=== PATIENT | female | born 1980 | race Two or more races ===

== ENCOUNTER 2017-07-19 20:56 | Emergency (ER) | payer BC, OTHER ==
[~2017-07-19] VITALS: Ht 165.1 cm; Wt 147.4 kg
--- NOTE | 2017-07-19 21:13 | NUR ---
DR. SALINAS AT BEDSIDE FOR MSE.
[2017-07-19 21:40] LABS: RED BLOOD CELL COUNT(AUTO) 4.77 MIL/UL (4.2-5.4)
[2017-07-19 21:42] LABS: CREATININE 0.8 mg/dL (0.6-1.3); POTASSIUM 4.3 mmol/L (3.5-5.1)
[2017-07-19 21:43] LABS: BASOPHILS # (AUTO) 0.1 K/uL (0.0-8.0); BASOPHILS % (AUTO) 1.2 % (0.0-2.0); EOSINOPHILS # (AUTO) 0.2 K/uL (0.0-0.7); EOSINOPHILS % (AUTO) 1.8 % (0.0-7.0); HEMATOCRIT 41.7 % (37-47); HEMOGLOBIN 13.9 G/DL (12.0-16.0); LYMPHOCYTES # (AUTO) 2.4 K/UL (0.8-4.8); LYMPHOCYTES % (AUTO) 22.7 % (20.5-51.5); MEAN CORPUSCULAR HEMOGLOBIN 29.2 UUG (27.0-31.0); MEAN CORPUSCULAR HGB CONC 33 g/dL (32.0-37.0); MEAN CORPUSCULAR VOLUME 87.3 FL (81.0-99.0); MONOCYTES # (AUTO) 0.7 K/UL (0.1-1.30); MONOCYTES % (AUTO) 6.6 % (0.0-11.0); NEUTROPHILS # (AUTO) 7.1 K/UL (1.8-8.9); NEUTROPHILS % (AUTO) 67.7 % (38.5-71.5); PLATELET COUNT (AUTO) 345 K/UL (150-450); WHITE BLOOD COUNT (AUTO) 10.5 K/UL (4.0-11.2)
[2017-07-19] MEDS ORDERED: KETOROLAC TROMETHAMINE 30 MG INJ IVP ONE (22:00)
[2017-07-19] MEDS ORDERED: KETOROLAC TROMETHAMINE 30 MG INJ ONE (22:38)
[2017-07-20] MEDS ORDERED: PANTOPRAZOLE SODIUM 40 MG TABLET.DR PO ONE ×2 (01:45→01:58)
--- NOTE | 2017-07-20 01:51 | NUR ---
Patient discharged to home in stable conditon. Written and verbal after care instructions given. Patient verbalizes understanding of instructions. PATIENT LEFT WITH STABLE GAIT.
[2017-07-20 01:52] VITALS: BP 133/76
== END 2017-07-20 01:52 | disposition home or self-care (01) ==
LOC: ER 20:59
DX: R07.9 Chest pain, unspecified (principal); I45.6 Pre-excitation syndrome; M25.512 Pain in left shoulder
CPT/HCPCS: 36415 ×2; 71010; 80048; 83735; 84484 ×2; 84703; 85025; 85379; 85730; 93005 ×2; 96374; 99285; A4663; J1885; 70030-TC

== ENCOUNTER 2020-09-06 03:22 | Emergency (ER) | payer BC, OTHER ==
[~2020-09-06] VITALS: Ht 165.1 cm; Wt 164.2 kg
--- NOTE | 2020-09-06 03:54 | NUR ---
EKG DONE, MONITOR SHOWS SINUS TACH AT 103,PT POSITIONED FOR COMFORT.
[2020-09-06] MEDS ORDERED: DICYCLOMINE HCL LIQ 10 MG/5 ML UDC PO ONE (04:00)
[2020-09-06] MEDS ORDERED: LIDOCAINE VISCUS 2% 15 ML UDC MM ONE (04:00)
[2020-09-06] MEDS ORDERED: MAG HYDROX/AL HYDROX/SIMETH 30 ML LIQUID UDC PO ONE (04:00)
[2020-09-06] MEDS ORDERED: MAGNESIUM HYDROXIDE 30 ML LIQUID UDC ONE (04:10)
[2020-09-06] MEDS ORDERED: LIDOCAINE VISCUS 2% 15 ML UDC ONE (04:10)
[2020-09-06] MEDS ORDERED: DICYCLOMINE HCL LIQ 10 MG/5 ML UDC ONE (04:11)
[2020-09-06] MEDS ORDERED: LORAZEPAM 2 MG/1 ML VIAL IV ONE (04:15)
[2020-09-06] MEDS ORDERED: IV NORMAL SALINE 1000 ML BAG IV ONE (04:15)
--- NOTE | 2020-09-06 04:34 | NUR ---
ALL MEDS ADMINISTERED , 1 L0.9NS BOLUS INFUSING, LABS SENT, PT POSITIONED FOR COMFORT.
[2020-09-06 04:36] LABS: BASOPHILS # (AUTO) 0.1 K/uL (0.0-8.0); BASOPHILS % (AUTO) 1.2 % (0.0-2.0); EOSINOPHILS # (AUTO) 0.2 K/uL (0.0-0.7); EOSINOPHILS % (AUTO) 1.7 % (0.0-7.0); HEMATOCRIT 41.6 % (31.2-41.9); LYMPHOCYTES # (AUTO) 2.4 K/uL (20.0-40.0); LYMPHOCYTES % (AUTO) 20.8 % (20.5-51.5); MEAN CORPUSCULAR HEMOGLOBIN 30.6 uug (24.7-32.8); MEAN CORPUSCULAR HGB CONC 34 g/dL (32.3-35.6); MONOCYTES # (AUTO) 0.9 K/uL (2.0-10.0); MONOCYTES % (AUTO) 7.6 % (0.0-11.0); NEUTROPHILS # (AUTO) 7.9 K/uL (1.8-8.9); NEUTROPHILS % (AUTO) 68.7 % (38.5-71.5); PLATELET COUNT (AUTO) 338 K/uL (179-408); RED BLOOD CELL COUNT(AUTO) 4.58 MIL/uL (3.63-4.92); WHITE BLOOD COUNT (AUTO) 11.5 K/uL (3.8-11.8)
[2020-09-06] MEDS ORDERED: LORAZEPAM 2 MG/1 ML VIAL ONE (04:36)
[2020-09-06 04:43] LABS: POTASSIUM 4.3 mmol/L (3.5-5.1)
[2020-09-06 04:48] LABS: BILIRUBIN,DIRECT 0.1 mg/dL (0.0-0.2); BILIRUBIN,TOTAL 0.5 mg/dL (0.2-1.0)
[2020-09-06 05:10] LABS: *BILIRUBIN,URIN NEGATIVE (NEGATIVE); *BLOOD, URINE 2+ (NEGATIVE); *CLARITY,URINE CLEAR (CLEAR); *COLOR,URINE YELLOW (YELLOW); *KETONES,URINE NEGATIVE (NEGATIVE); *UROBILINOGEN,URINE 0.2 E.U./dl (NORMAL); LEUKOCYTE ESTERASE ,URINE NEGATIVE (NEGATIVE); NITRITE, URINE NEGATIVE (NEGATIVE); PH,URINE 6.5 (5.0-8.0); UGLUCOSE NEGATIVE (NEGATIVE)
[2020-09-06 05:12] LABS: *URINE HCG, QUAL NEGATIVE (NEGATIVE)
--- NOTE | 2020-09-06 05:31 | NUR ---
Patient discharged to home in stable condition. Written and verbal after care instructions given. Patient verbalizes understanding of instructions. Stressed follow up or return to ER for worsening s/s. IV D/C'D INTACT.pT AMBULATED W/O DIFF/TOOK ALL BELONGINGS.
[2020-09-06 05:36] VITALS: BP 137/65
[2020-09-06 13:55] LABS: BACTERIA,URINE FEW /HPF (NONE SEEN); SQUAMOUS EPITHELIAL CELL,UR MODERATE /HPF (NONE SEEN); URINE AMORPHOUS URATE MODERATE /HPF; WBC,URINE 0-3 /HPF (0-3)
== END 2020-09-06 05:36 | disposition home or self-care (01) ==
LOC: ER 03:26
DX: R53.1 Weakness (principal); R00.0 Tachycardia, unspecified; R00.2 Palpitations; E66.01 Morbid (severe) obesity due to excess calories; Z68.44 Body mass index [BMI] 60.0-69.9, adult; F41.9 Anxiety disorder, unspecified; K21.9 Gastro-esophageal reflux disease without esophagitis; Z20.828 Contact with and (suspected) exposure to other viral communicable diseases
CPT/HCPCS: 36415; 71045; 80048; 80076; 81001; 84703; 85025; 85379; 87426; 93005; 96361; 96374; 99285; J2060; A4663